=== PATIENT | female | born 1935 | race Caucasian/White ===

== ENCOUNTER 2018-07-08 05:28 | Inpatient (IN) | payer MEDICARE, BC ==
[2018-07-07 14:14] LABS: BASOPHILS % (AUTO) 0.3 % (0-1); EOSINOPHILS # (AUTO) 0.2 X10'3 (0-0.9); EOSINOPHILS % (AUTO) 1.4 % (0-6); LYMPHOCYTES # (AUTO) 3.5 X10'3 (1.1-4.8); LYMPHOCYTES % (AUTO) 30.8 % (21-51); MEAN CORPUSCULAR HEMOGLOBIN 32.3 PG (27.0-31.0); MEAN CORPUSCULAR HGB CONC 33.2 % (33.0-36.5); MEAN CORPUSCULAR VOLUME 97.3 FL (78-98); MEAN PLATELET VOLUME 8.1 FL (7.4-10.4); MONOCYTES # (AUTO) 0.8 X10'3 (0-0.9); MONOCYTES % (AUTO) 6.7 % (2-12); NEUTROPHILS # (AUTO) 6.9 X10'3 (1.8-7.7); NEUTROPHILS % (AUTO) 60.8 % (42-75); PRE OP HEMATOCRIT 32.5 % (35.0-45.0); PRE OP PLATELET COUNT 278 X10'3 (140-440); RED BLOOD COUNT 3.34 X10'6 (4.20-5.60); RED CELL DISTRIBUTION WIDTH 13.6 % (11.5-14.5)
[2018-07-07 14:15] LABS: PRE OP HEMOGLOBIN 10.8 g/dL (12.0-16.0)
[2018-07-07 14:34] LABS: BLOOD UREA NITROGEN 21 MG/DL (7-18); CHLORIDE 96 MMOL/L (99-107); PRE OP ANION GAP 13 (8-16); PRE OP GLUCOSE 100 MG/DL (70-104); PRE OP SODIUM 135 MMOL/L (135-145); TOTAL CARBON DIOXIDE 26.4 MMOL/L (24-32)
[2018-07-07 14:35] LABS: ALBUMIN 2.9 G/DL (3.4-5.0); ALBUMIN/GLOBULIN RATIO 0.6 (1.1-1.5); ALKALINE PHOSPHATASE 98 IU/L (46-116); BUN/CREATININE RATIO 31.8 (6.6-38.0); CALCIUM 9.1 MG/DL (8.5-10.1); CREATININE 0.66 MG/DL (0.40-0.90); PRE OP ALT 33 U/L (30-65); PRE OP AST 24 U/L (10-37); PRE OP INR < 0.9 INR; PRE OP PARTIAL THROMB. TIME 30 SECONDS (22-35); PRE OP PROTIME 8.9 SECONDS (9.0-12.0); eGFR 86 ML/MIN
[2018-07-07 14:48] LABS: PRE OP POTASSIUM 3.2 MMOL/L (3.4-5.1)
[2018-07-08] VITALS (20 sets, daily range): BP systolic 106–148; BP diastolic 50–100
[~2018-07-08] VITALS: Ht 149.9 cm; Wt 58.5 kg
[~2018-07-08 05:28] MED LIST: ALEN35TA17 PO; ATOR20TA66 PO; CEPH-572 PO; ringers solution, lacted 1,000 ML IV SCH
[2018-07-08] MEDS ORDERED: CLINDAmcin 900mg/NS 50ml IVPB 50 ML IV ONE (05:30)
[2018-07-08] MEDS ORDERED: VANCOMYCIN INJ 1000 MG in NORMAL SALINE 250ml IV.SOLN IV ONE (05:30)
[2018-07-08] MEDS ORDERED: famotidine 20mg tablet PO ONE (05:30)
[2018-07-08] MEDS ORDERED: LIDOcaine 1% (10mg/ml) 2ml vial ONE (05:54)
[2018-07-08 06:45] LABS: ISTAT ANION GAP 13 (8-12); ISTAT BUN 18 mg/dL (6-19); ISTAT CL 98 mmol/L (99-107); ISTAT CREATININE 0.5 mg/dL (0.6-1.1); ISTAT GLUCOSE 116 mg/dL (70-104); ISTAT HGB 11.6 g/dl (12.0-16.0); ISTAT Hct 34 %PCV (35-48); ISTAT IONIZED CALCIUM 1.13 mmol/L (1.03-1.32); ISTAT K 3.7 mmol/L (3.5-5.1); ISTAT NA 136 mmol/L (135-145); ISTAT TOTAL CO2 25 mmol/L (24-32); ISTAT eGFR > 90 ML/MIN
[2018-07-08] MEDS ORDERED: morphine 2 MG/ML inj. syringe IV STA (06:57)
[2018-07-08] MEDS ORDERED: vancomycin 1,000mg inj ONE ×2 (07:00→07:09)
[2018-07-08] MEDS ORDERED: ROPIVAcaine 0.5% (5mg/ml) 30ml vial ONE ×3 (07:00→07:09)
[2018-07-08] MEDS ORDERED: ketorolac trometh. 30mg/ml inj. ONE ×2 (07:00→07:09)
[2018-07-08] MEDS ORDERED: morphine 4 MG/ML inj SYRINge IV STA (07:02)
[2018-07-08] MEDS ORDERED: cloNIDine hcl/PF 100mcg/ml inj ONE (07:06)
[2018-07-08] MEDS ORDERED: NORMAL SALINE IV ONE ×4 (07:10)
[2018-07-08] MEDS ORDERED: TRANEXAMIC ACID IV ONE ×4 (07:10)
[2018-07-08] MEDS ORDERED: sevoflurane 250ml liquid IH ONE (07:12)
[2018-07-08] MEDS ORDERED: fentaNYL/PF 50MCG/1 ML 2ML syringe ONE ×2 (07:14→08:48)
[2018-07-08] MEDS ORDERED: midazolam 2 mg/2 ml injection ONE (07:15)
[2018-07-08] MEDS ORDERED: propofol inj 20 ML IV ONE (07:15)
[2018-07-08] MEDS ORDERED: dexamethasone sod phosphate 4mg/ml inj. ONE (07:15)
[2018-07-08] MEDS ORDERED: LIDOcaine 2% (20mg/ml) 5ml vial ONE (07:15)
[2018-07-08] MEDS ORDERED: ondansetron/PF 4mg/2ml inj ONE (07:15)
[2018-07-08] MEDS ORDERED: ePHEDrine 50MG/ML INJ. ONE (07:37)
[2018-07-08] MEDS ORDERED: ringers solution, lacted 1,000 ML IV SCH (08:06)
[2018-07-08] MEDS ORDERED: fentaNYL/PF 50MCG/1 ML 2ML syringe IV PRN ×2 (08:10)
[2018-07-08] MEDS ORDERED: hydrALAZINE 20mg/ml inj. IV PRN (08:10)
[2018-07-08] MEDS ORDERED: labetalol 20mg/4ml (5mg/ml) syringe IV PRN (08:10)
[2018-07-08] MEDS ORDERED: ondansetron/PF 4mg/2ml inj IV PRN ×2 (08:10→09:35)
[2018-07-08] MEDS ORDERED: morphine 4 MG/ML inj SYRINge IV PRN ×2 (08:10)
[2018-07-08] MEDS ORDERED: diphenhydrAMINE 25mg capsule PO PRN ×2 (09:35)
[2018-07-08] MEDS ORDERED: non-formulary drug (Alendronate Sodium* (Fosamax*) 70 MG) PO SCH (09:35)
[2018-07-08] MEDS ORDERED: magnesium hydroxide 30ml (MOM) UD suspension PO PRN (09:35)
[2018-07-08] MEDS ORDERED: acetaminophen 325mg tablet PO PRN (09:35)
[2018-07-08] MEDS ORDERED: bisacodyl 10mg suppository rectal RC PRN (09:35)
[2018-07-08] MEDS ORDERED: HYDROmorphone 1 mg/ml syringe IV PRN ×2 (09:35)
[2018-07-08] MEDS ORDERED: oxyCODONE IR 5mg (immed. release) tablet PO PRN (09:35)
[2018-07-08] MEDS ORDERED: tranexamic acid inj. 600 MG in normal saline 100ml IV soln 100 ML IV ONE (13:00)
[2018-07-08] MEDS: ketorolac tromethamine 15mg/ml inj. IV SCH ×2 (14:27→20:25)
[2018-07-08] MEDS: acetaminophen 325mg tablet PO SCH ×2 (14:28→20:24)
[2018-07-08] MEDS: gabapentin 300mg capsule PO SCH ×2 (14:28→20:24)
[2018-07-08] MEDS: potassium cl 20mEq in 1/2 NS 1,000 ML IV SCH ×2 (16:16→17:34)
[2018-07-08] MEDS: ceFAZolin 1GM/D5W- ADD-VANTAGE 50 ML IV SCH ×2 (16:16→23:48)
[2018-07-08] MEDS ORDERED: vancomycin/NS 1 GM ADD-VANTAGE 250 ML IV SCH (20:00)
[2018-07-08] MEDS ORDERED: sennosides 8.6mg tablet PO SCH (21:00)
[2018-07-08] MEDS: oxyCODONE IR 5mg (immed. release) tablet PO PRN (23:36)
[2018-07-09] VITALS (9 sets, daily range): BP systolic 77–124; BP diastolic 36–55
[2018-07-09] MEDS: potassium cl 20mEq in 1/2 NS 1,000 ML IV SCH (02:19)
[2018-07-09] MEDS: acetaminophen 325mg tablet PO SCH ×3 (02:20→13:10)
[2018-07-09] MEDS: ketorolac tromethamine 15mg/ml inj. IV SCH ×2 (02:20→07:40)
[2018-07-09] MEDS: oxyCODONE IR 5mg (immed. release) tablet PO PRN ×2 (04:33→10:34)
[2018-07-09 06:07] LABS: BASOPHILS % (AUTO) 0.2 % (0-1); EOSINOPHILS % (AUTO) 0 % (0-6); HEMATOCRIT 23.7 % (35.0-45.0); HEMOGLOBIN 8.1 g/dl (12.0-16.0); LYMPHOCYTES # (AUTO) 2.3 X10'3 (1.1-4.8); LYMPHOCYTES % (AUTO) 15.4 % (21-51); MEAN CORPUSCULAR HEMOGLOBIN 32.9 PG (27.0-31.0); MEAN CORPUSCULAR VOLUME 96.9 FL (78-98); MEAN PLATELET VOLUME 8.2 FL (7.4-10.4); MONOCYTES # (AUTO) 0.9 X10'3 (0-0.9); MONOCYTES % (AUTO) 5.9 % (2-12); NEUTROPHILS # (AUTO) 11.7 X10'3 (1.8-7.7); NEUTROPHILS % (AUTO) 78.5 % (42-75); PLATELET COUNT 218 X10'3 (140-440); RED BLOOD COUNT 2.44 X10'6 (4.20-5.60); RED CELL DISTRIBUTION WIDTH 13.9 % (11.5-14.5); WHITE BLOOD COUNT 14.9 X10'3 (4.5-11.0)
[2018-07-09] MEDS: gabapentin 300mg capsule PO SCH ×2 (07:40→13:10)
[2018-07-09] MEDS: cephalexin 500mg capsule PO SCH ×2 (07:40→07:43)
[2018-07-09] MEDS ORDERED: atorvastatin 20mg tablet PO SCH (08:00)
[2018-07-09] MEDS ORDERED: aspirin 325mg tablet PO SCH (08:30)
[2018-07-09] MEDS ORDERED: normal saline 500ml IV soln 1,000 ML IV ONE (08:40)
[2018-07-09 09:02] LABS: POTASSIUM 4.2 MMOL/L (3.5-5.1); SODIUM 136 MMOL/L (135-145)
[2018-07-09 09:03] LABS: ANION GAP 11 (8-16); CHLORIDE 103 MMOL/L (99-107); TOTAL CARBON DIOXIDE 22.3 MMOL/L (24-32)
[2018-07-09 13:22] LABS: HEMATOCRIT 32.2 % (35.0-45.0); HEMOGLOBIN 10.7 g/dl (12.0-16.0); MEAN CORPUSCULAR HGB CONC 33.3 % (33.0-36.5); MEAN CORPUSCULAR VOLUME 95.9 FL (78-98); MEAN PLATELET VOLUME 8.2 FL (7.4-10.4); PLATELET COUNT 238 X10'3 (140-440); RED BLOOD COUNT 3.36 X10'6 (4.20-5.60); RED CELL DISTRIBUTION WIDTH 14.1 % (11.5-14.5)
[2018-07-09] MEDS ORDERED: celeCOXIB 100mg capsule PO SCH (20:00)
[2018-07-09] MEDS ORDERED: lactobacillus rhamnosus 10,000 MMU CELLS/CAPSULE PO SCH (20:00)
[2018-07-10] MEDS ORDERED: acetaminophen 325mg tablet PO PRN (09:35)
== END 2018-07-09 14:21 | disposition home or self-care (01) | DRG 483 ==
LOC: PAS IN 05:28 → EDSTATUS 07:30 → ORTHO 4S 10:49
PROVIDERS: ADMIT Orthopaedic Surgery; ATTEND Orthopaedic Surgery
PROC: 0LS30ZZ Reposition Right Upper Arm Tendon, Open Approach (ICD-10-PCS; 2018-07-08)
PROC: 3E0T3BZ Introduction of Anesthetic Agent into Peripheral Nerves and Plexi, Percutaneous Approach (ICD-10-PCS; 2018-07-08)
PROC: 0RRJ00Z Replacement of Right Shoulder Joint with Reverse Ball and Socket Synthetic Substitute, Open Approach (ICD-10-PCS; principal; 2018-07-08 07:12)
PROC: 30233N1 Transfusion of Nonautologous Red Blood Cells into Peripheral Vein, Percutaneous Approach (ICD-10-PCS; 2018-07-09)
DX: S42.241A 4-part fracture of surgical neck of right humerus, initial encounter for closed fracture (principal); D62 Acute posthemorrhagic anemia; M81.0 Age-related osteoporosis without current pathological fracture; M19.011 Primary osteoarthritis, right shoulder; E78.5 Hyperlipidemia, unspecified; W18.39XA Other fall on same level, initial encounter; Z79.899 Other long term (current) drug therapy; Y93.89 Activity, other specified; Y92.89 Other specified places as the place of occurrence of the external cause; Y99.8 Other external cause status
CPT/HCPCS: 36415; 80047; 80051; 80053; 85025; 85027; 85610; 85730; 86885; 86900; 86901; 86920; 87070; 93005; 97116; 97161; 97530; A7000; G0378; J0690; J0735; J1100; J1885; J2001; J2250; J2270; J2405; J2704; J2795; J3010; J3370; J3490; J7030; J7120; P9016